=== PATIENT | male | born 1950 | race Caucasian/White ===

== ENCOUNTER 2017-10-09 19:30 | Inpatient (IN) | payer MEDICAID ==
[2017-10-10 02:23] LABS: ADD MAN DIFF? NO
[2017-10-10 02:26] LABS: WHITE BLOOD COUNT 11.3 10^3/ul (4.8-10.8)
[2017-10-10 02:27] LABS: BASOPHIL # 0.1 10^3/ul (0.0-0.1); BASOPHILS % 0.4 % (0.0-2.0); EOSINOPHILS # 0.2 10^3/ul (0.0-0.5); EOSINOPHILS % 1.5 % (0.0-7.0); HEMATOCRIT 43.8 % (42.0-52.0); HEMOGLOBIN 14.2 g/dl (14.0-18.0); LYMPHOCYTES % 35.8 % (15.0-51.0); MEAN CORPUSCULAR HEMOGLOBIN 29.6 pg (29.0-33.0); MEAN CORPUSCULAR HGB CONC 32.4 g/dl (32.0-37.0); MEAN CORPUSCULAR VOLUME 91.3 fl (82.0-101.0); MEAN PLATELET VOLUME 10.1 fl (7.4-10.4); MONOCYTE # 1.1 10^3/ul (0.3-0.9); MONOCYTES % 9.7 % (0.0-11.0); NEUTROPHIL # 5.9 10^3/ul (1.6-7.5); NEUTROPHILS % 52.3 % (39.0-77.0); PLATELET COUNT 263 10^3/UL (140-415); RED CELL DISTRIBUTION WIDTH 13.2 % (11.5-14.5)
[2017-10-10 02:45] LABS: INR 0.89; PROTIME 12.1 Sec (11.9-14.9); PT RATIO 0.9
[2017-10-10 02:46] LABS: PARTIAL THROMBOPLASTIN TIME 30.9 Sec (25.0-35.0)
[2017-10-10 02:47] LABS: ANION GAP 13 (8-16); BLOOD UREA NITROGEN 17 mg/dl (7-20); CALCIUM 9.3 mg/dl (8.4-10.2); CARBON DIOXIDE 23 mmol/L (21-31); CHLORIDE 107 mmol/L (97-110); CREATININE 0.85 mg/dl (0.61-1.24); GLUCOSE 122 mg/dl (70-220); POTASSIUM 3.8 mmol/L (3.5-5.1); SODIUM 139 mmol/L (135-144)
[2017-10-10] MEDS: ASPIRIN 81 MG TAB PO ×2 (04:14→17:58)
[2017-10-10] MEDS ORDERED: ACETAMINOPHEN 325 MG TAB PO (04:30)
[2017-10-10] MEDS ORDERED: BISACODYL (EC) 5 MG TAB PO (04:30)
[2017-10-10] MEDS ORDERED: NACL 0.9% 3 ML SYG IV (04:30)
[2017-10-10] MEDS ORDERED: DOCUSATE SODIUM 100 MG CAP PO (04:30)
[2017-10-10] MEDS ORDERED: ONDANSETRON 4 MG INJ IV (04:30)
[2017-10-10] MEDS: SOD CHLORIDE 0.9% 1,000 ML IV ×3 (05:04→16:28)
[2017-10-10] MEDS: BENAZEPRIL 40 MG TAB PO (11:05)
[2017-10-10] MEDS: CLOPIDOGREL 75 MG TAB PO (20:32)
[2017-10-10] MEDS: ATORVASTATIN 80 MG TAB PO (20:32)
[2017-10-11] MEDS: BENAZEPRIL 40 MG TAB PO (08:11)
[2017-10-11] MEDS: AMLODIPINE 5 MG TAB PO (11:46)
== END 2017-10-11 12:49 | disposition home or self-care (01) | DRG 66 ==
LOC: E/R 19:30 → MS3 10-10 03:48 → MS4 10-10 21:18
DX: I63.9 Cerebral infarction, unspecified (principal); I10 Essential (primary) hypertension; Z79.02 Long term (current) use of antithrombotics/antiplatelets; Z79.82 Long term (current) use of aspirin; Z87.891 Personal history of nicotine dependence
CPT/HCPCS: 36415; 70450; 70544; 70548; 70551; 71045; 80048; 85025; 85610; 85730; 92523; 93306; 99285-25